=== PATIENT | male | born 1960 | race Caucasian/White ===

== ENCOUNTER → 2016-10-23 | Outpatient (CLI) | payer BC ==
[~2016-10-23] MED LIST: ASPIRIN81 M2 PO; CARVEDILOL6.25 MG PO; CLOPIDOGREL BIS75 MG PO; DULCOLAX5 MG; FISH OIL 1,001000 M1 PO; HYDROCODON-ACE1 EAC7; LIPITOR20 MG PO; LISINOPRIL2.5 MG PO; MAGNESIUM400 M1; TYLENOL #3
--- NOTE | ~2016-10-23 | US37 ---
[facility] A Service of [facility] & [facility] RADIOLOGY TEXT RESULTS PATIENT: ROCIO SWEENEY LOCATION: [facility] : 58 UNIT #: [id number] AGE: [address]: Luiz Mustafa MD SEX: M ORDER DR: [id number] [facility] [address] [facility] [place] [facility]. [place], [place] [address] [id number] O MR#: [id number] Acc #: [id number] NAME: ROCIO SWEENEY : 1960 SEX: M STUDY DATE/TIME: 10/23/2016 8:46 UNIT: [facility] ROOM: STUDY DESCRIPTION: US Carotid W/Doppler Bilateral Attending Physician: Richard Mustafa M.D. Referring Physician: Richard Mustafa M.D. Ordering Physician: Richard Mustafa M.D. Primary Care Physician: Rocio Pepe M.D. MEDICAL IMAGING REPORT This report is preliminary unless electronic signature is present EXAM Bilateral carotid Doppler, 10/23/2016. HISTORY Carotid stenosis. FINDINGS The right common, internal, and external carotid arteries are patent. There is no plaque or intimal thickening noted throughout. Velocity of the common carotid artery is 81 cm/sec. Peak systolic velocity of the right proximal internal carotid artery is 69 cm/sec, with an end diastolic velocity of 36 cm/sec, for an ICA:CCA ratio of 0.85. External carotid artery velocity of 77 cm/sec. The vertebral artery is visualized with antegrade flow. The left common, internal, and external carotid arteries are patent. There is no minimal plaque noted in the carotid bulb and internal carotid artery. Velocity of the common carotid artery is 96 cm/sec. Peak systolic velocity of the left proximal internal carotid artery is 71 cm/sec, with an end diastolic velocity of 23 cm/sec, for an ICA:CCA ratio of 0.75. External carotid artery velocity of 98 cm/sec. The vertebral artery is visualized with antegrade flow. IMPRESSION 1. Normal appearance of the right internal carotid artery and less than 50% stenosis of the left internal carotid artery. 2. No stenosis of the external carotid arteries. 3. Antegrade flow of the vertebral arteries. Dictated by... Andrae Cadet M.D. [facility]. [facility] A Service of [facility] & [facility] RADIOLOGY TEXT RESULTS PATIENT: ROCIO SWEENEY [id number] : 58 UNIT #: [id number] AGE: [address]: Luiz Mustafa MD SEX: M ORDER DR: THIS IS AN ELECTRONICALLY VERIFIED REPORT Andrae Cadet M.D. at 10/28/2016 6:35 AM Azeem TD: 10/23/2016 16:14 JOB #: [id number] MEDICAL IMAGING REPORT Page 1 of 1 COPY
--- NOTE | ~2016-10-23 | TH ---
Unit #: [id number] #: [id number] Patient: ROCIO SWEENEY [id number] [address] [address] [id number] O MR#: [id number] NAME: ROCIO SWEENEY : 1960 SEX: M STUDY DATE/TIME: 10/23/2016 UNIT: [facility] ROOM: STUDY DESCRIPTION: Attending Physician: Richard Mustafa M.D. Referring Physician: Richard Mustafa M.D. Primary Care Physician: Rocio Pepe M.D. CARDIOLOGY REPORT EXAM Exercise Cardiolite stress test, nuclear portion. PROCEDURE Using technetium 99m labeled Cardiolite, rest and stress SPECT images were obtained. Multiple SPECT images were obtained in various views including horizontal and vertical long axis and short axis views of the left ventricle. Images were obtained by gated SPECT method. The patient was administered 10.94 mCi of Cardiolite at rest. Patient was administered 29.7 mCi of Cardiolite at peak exercise. Total exercise time is 12 minutes and 23 seconds. On the stress images, there is normal perfusion noted. The rest images show mild decreased isotope activity inferoapically consistent with soft tissue artifact. Comparing rest and stress images, there is no stress-induced ischemia noted. The left ventricular ejection fraction is calculated to be 62%. There is no focal wall motion abnormality seen. CONCLUSION 1. No stress-induced ischemia noted. 2. The left ventricular ejection fraction is calculated to be 62%. 3. There is no focal wall motion abnormality seen. 4. Normal exercise Cardiolite stress test. Dictated by... Erasto Novak TD: 10/23/2016 15:31 JOB #: [id number] CC: Richard Mustafa M.D. Unit #: [id number] #: [id number] Patient: ROCIO SWEENEY CARDIOLOGY REPORT Page 1 of 1 X Marina Up MD <ELECTRONICALLY SIGNED> 11/12/16 1524 CARDIOLOGY REPORT
== END | disposition home or self-care (01) ==
LOC: CNUC 07:57
DX: I25.10 Atherosclerotic heart disease of native coronary artery without angina pectoris (principal); R07.9 Chest pain, unspecified; I65.22 Occlusion and stenosis of left carotid artery
CPT/HCPCS: 78452; 93017; 93880; A9500